=== PATIENT | male | born 1965 | race Caucasian/White ===

== ENCOUNTER 2018-06-13 19:48 | Observation (INO) | payer OTHER ==
--- NOTE | 2018-06-13 22:15 | PDGENHP ---
History and Physical - Chief Complaint Left chest pain and left leg tingling - History of Present Illness 53-year-old male with past medical history of gout and distant history of hyperlipidemia and alcohol abuse who was transferred from a free-standing ER where he presented with chest pain and left leg tingling. He says that he was skiing at [employer] today and while driving up developed left-sided chest pain that came and went intermittently throughout the day. He also said he was more fatigued today as well. After skiing he was in his condo with his and said that the chest pain spread to his left arm. They became concerned and decided to drive home rather than stay the night at the condo in [place]. They decided to stop at the freestanding ER in [facility] in [place] where he was evaluated. A CTA of his chest was obtained which showed no acute pulmonary embolus. A CT and CTA of his head and neck was obtained which showed no acute infarct. Tele neurology was consulted as well who did not think he was having an acute infarct. His chest pain was left-sided sharp came on for a few seconds and then would resolve. He had these episodes throughout the day. Later in the day though it did spread to his left arm with some tingling. His left leg was also tingling later in the day any thinks he may have had some mild weakness transiently in his left leg. Symptoms are currently resolved he said he feels good. He had no nausea vomiting double vision cough shortness of breath or other symptoms History Information - Allergies/Home Medication List Allergies/Adverse Reactions: No Known Allergies Allergy (Verified 05/02/13 11:05) Home Medications: Allopurinol 100 MG (*) 200 06/13/18 [Last Taken Unknown] I have personally reviewed and updated: family history, medical history, social history, surgical history (gout, hld, etoh abuse, ) - Family History Positive for: non-pertinent - Social History Smoking Status: Former smoker Tobacco Use: Cigarettes Alcohol Use: None Review of Systems Review of Systems: ROS: 10pt was reviewed & negative except for what was stated in HPI & below Physical Exam Physical Exam: Temp Pulse Resp BP Pulse Ox 36.7 C 77 16 132/87 H 93 06/13/18 21:27 06/13/18 21:27 06/13/18 21:27 06/13/18 21:27 06/13/18 21:27 Constitutional: no apparent distress, appears nourished, not in pain Eyes: PERRL, anicteric sclera, EOMI Ears, Nose, Mouth, Throat: moist mucous membranes, hearing normal, ears appear normal, no oral mucosal ulcers Cardiovascular: regular rate and rhythym, no murmur, rub, or gallop, No edema Respiratory: no respiratory distress, no rales or rhonchi, clear to auscultation Gastrointestinal: normoactive bowel sounds, soft, non-tender abdomen, no palpable masses Genitourinary: no bladder fullness, no bladder tenderness Skin: warm, normal color, no rashes or abrasions, no fluctuance, no induration, No mottled Musculoskeletal: full muscle strength, no muscle tenderness, normal joint ROM, no joint effusions Psychiatric: interacting appropriately, not anxious, not encephalopathic, thought process linear Lymph, Heme, Immunologic: no cervical LAD, no supraclavicular LAD Assessment & Plan Assessment: Chest pain- heart score is 3 for moderately suspicious history, history of hyperlipidemia, and his age of 53 years. Currently is chest pain-free. EKG is normal sinus rhythm. Initial troponin was negative. CTA was negative for any PE. -monitor on telemetry -echo -cycle tropes -exercise stress test in the morning -cards consult Left leg tingling- CTA head and neck negative, symptoms resolved, neurology consulted at osh ER who fell patient not having an acute stroke. They apparently called Dr. Carlisle who said he would see the patient in the morning. -echo with bubble -lipid panel hemoglobin A1c -MRI brain -Neurology to see Gout- continue allopurinol Prophylaxis- SCDs and Lovenox Fluids-saline Electrolytes- within normal limits Nutrition-cardiac diet Cor-full code Dispo- observation for chest pain and left leg tingling
[2018-06-13] MEDS ORDERED: ACETAMINOPHEN 325 MG TAB PO PRN (22:32)
[2018-06-13] MEDS ORDERED: ONDANSETRON DISINTEGRATING 4 MG TAB PO PRN (22:32)
[2018-06-13] MEDS ORDERED: ONDANSETRON 4 MG/2 ML VIAL IVP PRN (22:32)
[2018-06-13] MEDS ORDERED: NS 1,000 ML IV SCH (22:45)
[2018-06-14 05:13] LABS: PLATELET COUNT 272 10^3/uL (150-400)
[2018-06-14] MEDS ORDERED: GADOBUTROL 10 ML VIAL IVP ONE (10:39)
[2018-06-14 11:15] VITALS: BP 116/81
--- NOTE | 2018-06-14 11:43 | NEUROPROG ---
Assessment: [id number] - Neurology Consult: - CC: Dr. Torres consulted neurology for left leg tingling - HPI: 06/14/18: Pt noted on 06/13/18 that he had chest pain intermittently throughout the day. He was seen at a free-standing ER on 06/13/18 for these symptoms. It was reported a chest CTA showed no acute PE and a head/neck CTA was unremarkable. Head CT reported to show no bleed. Tele-neurology was also consulted and they did not feel the patient was having an acute infarct. He also noted tingling in his left arm/leg and possible subtle weakness in his left leg on 06/13/18. Symptoms had resolved when he was admitted to [facility] for evaluation of his symptoms. I initially saw the patient on 06/14/18. Neurologic exam was normal. Brain MRI did not show any acute stroke on my review but pending radiology read. - PMHx: gout, alcohol abuse, HLD - SHx: former tobacco user FHx: NC - ROS: Pt denied acute fever, total vision loss, active severe chest pain, respiratory failure, total body severe rash, total bowel/bladder incontinence, psychosis, active seizures, or active bleeding - O: VS reviewed General: Alert Eyes: Fundoscopic exam not able to visualize optic disks CV: Heart RRR, no murmur, no carotid bruit Lungs: Clear to auscultation bilaterally, no rhonchi or rales Neuro: - Mental: . Oriented x person/place/date . concentration appears normal . speech fluency/comprehension normal . memory appears normal . fund of knowledge appear intact - Cranial Nerves: . II: PERRL, VFFTC . III/IV/: EOMI, no nystagmus, normal smooth pursuits, no Ptosis . V: facial sensation intact to LT . VII: face symmetric to eye closure and smile . VIII: hearing intact to conversation . IX/X: uvula raises symmetrically . XI: SCM 5/5 B/L strength . XII: tongue protrudes midline w/nl strength - Motor: . Tone: normal tone in all 4 extremity . Strength: no pronator drift, strength 5/5 throughout (B/L delt, bic, tri, hand breast splitter, hf/he, df/pf) - Reflexes: B/L bic/BR/patella 2/4 - Sensory: all 4 extremity intact to light touch - Coord: [id number] wnl, CHRISTOPHER wnl, [id number] wnl - Gait: deferred - Labs: 06/14/18- CBC wnl, CMP Phos 4.6H, LDL 109 - Rads: 06/13/18- Head CT: reported to not show any bleeding 06/13/18- Head/neck CTA: reported to show no vessel occlusion 06/14/18- Brain MRI wo: no stroke seen - Assessment: 1. Left arm/leg tingling in setting of chest pain on 06/13/18: Likely tingling is from chest pain. However, TIA is possible so recommend full TIA evaluation. - Plan: - Begin aspirin 81 mg qd for stroke prevention - 24 hour telemetry to ensure no afib - TTE - Carotid U/S to exclude carotid stenosis - Blood pressure < 140/90 - H1AC < 7.0 - LDL < 70 (109), recommend beginning low dose statin - Agree with cardiology consult to evaluate chest pain Objective: Vital Signs Temp Pulse Resp BP Pulse Ox 36.6 C 88 15 116/81 H 97 06/14/18 11:14 06/14/18 11:14 06/14/18 11:14 06/14/18 11:14 06/14/18 11:14 Laboratory Results 06/14/18 04:30 06/14/18 04:30 06/13/18 06/14/18 06/15/18 05:59 05:59 05:59 Intake Total 150 Balance 150 Allergies/Adverse Reactions: No Known Allergies Allergy (Verified 05/02/13 11:05)
--- NOTE | 2018-06-14 12:46 | ECHO ---
[email or web address] [address] [address] Main: [phone] Fax: Transthoracic Echocardiogram Name: JAKE BLANCA MR#: [id number] Study Date: 06/14/2018 Study Time: 09:50 AM Date of : 1965 Age: 53 year(s) Height: 172.7 cm (68 in.) Weight: 77.57 kg (171 lb.) BSA: 1.91 m2 Gender: Male Examination: Echo Indication: Chest pain/left leg weakness Image Quality: Excellent Contrast: Requested by: Benjie Mendiola BP: 103 mmHg/62 mmHg Heart Rate: Rhythm: Indication: Chest pain/left leg weakness Procedure Staff Molded Parts Inspector: Leanne Reed [facility] Reading Physician: Olga Weiss MD Requesting Provider: Conclusions: Normal size left ventricle. No LV hypertrophy. Normal global systolic LV function. The ejection fraction is estimated to be 65-70 %. No regional wall motion abnormality. Normal diastolic LV function. Normal size right ventricle. Normal RV function. Trivial to mild tricuspid valve regurgitation. The pulmonary artery pressure is normal. No pericardial effusion. There is no previous echocardiogram for comparison. Measurements: Chambers Valvular Assessment AV/MV Valvular Assessment TV/PV Normal Normal Normal Name Value Range Name Value Range Name Value Range Ao Jazmine (MM): 3.4 cm (2.2 cm-3.7 AV Vmax: 1.27 m/s (1 m/s-1.7 TR Vmax: 2.08 mm/s ( - ) cm) m/s) TR PGmax: 17 mmHg ( - ) IVSd (2D): 0.9 cm (0.6 cm-1.1 AV meanP mmHg ( - ) syst. PAP: 22 mmHg ( - ) cm) MV E Vmax: 0.61 m/s ( - ) LVDd (2D): 4.7 cm (4.2 cm-5.9 MV A Vmax: 0.70 m/s ( - ) cm) MV E/A: 0.87 ( - ) LVDs (2D): 2.6 cm (2.1 cm-4 cm) LVPWd (2D): 0.9 cm (0.6 cm-1 cm) LVEF (BP): 75 % (>=55 %) EF Range: 65-70 % Patient: JAKE BLANCA Study Date: 06/14/2018 Page 1 of 2 09:50 AM Continued Measurements: Chambers Valvular Assessment AV/MV Valvular Assessment TV/PV Name Value Name Value Name Value LADs: 3.6 cm MV E' Septal: 0.06 m/s CVP (est.): 5 mmHg LADs Lon.4 cm MV E/E' Septal: 9.80 LA Area: 12.2 cm2 MV E/E' Lateral: 8.10 LA Volume: 29 ml LA Volume Index: 15.2 ml/m2 Additional Vessels Name Value Ao Ascendin.0 cm Findings: Left Ventricle: Normal size left ventricle. No LV hypertrophy. Normal global systolic LV function. The ejection fraction is estimated to be 65-70 %. No regional wall motion abnormality. Normal diastolic LV function. Right Ventricle: Normal size right ventricle. Normal RV function. Left Atrium: The left atrium is normal in size. Right Atrium: The right atrium is normal in size. Mitral Valve: The mitral valve is normal in appearance and function. Aortic Valve: The aortic valve is normal in appearance and function. The aortic valve is tri-leaflet. There is no aortic valve regurgitation. Tricuspid Valve: The tricuspid valve is normal in appearance and function. Trivial to mild tricuspid valve regurgitation. The pulmonary artery pressure is normal. Pulmonic Valve: The pulmonic valve is normal in appearance and function. Trivial pulmonic valve regurgitation. Aorta: The aorta is normal. Pericardium: No pericardial effusion. (No Signature Object) Patient: JAKE BLANCA Study Date: 06/14/2018 Page 2 of 2 09:50 AM [id number]
--- NOTE | 2018-06-14 12:47 | CPIP ---
[f rep st] INVASIVE CARDIAC PROCEDURE DATE OF PROCEDURE: 06/14/2018 PROCEDURE: Exercise stress test INDICATIONS: Chest pain. COMPLICATIONS: None. DESCRIPTION OF PROCEDURE: Informed consent was obtained. Patient was attached to the cardiac monito r. He underwent standard Chris protocol testing, continuous EKG monitoring, frequent blood pressure monitoring, and spot saturation monitoring. FINDINGS: The resting EKG shows normal sinus rhythm. The patient walked for 10 minutes and 43 secon ds achieving a maximum METS of 11.2. Resting heart rate was 85 beats per minute. Peak heart rate 174 beats per minute, which represents 1 03% of age predicted maximum heart rate. Resting blood pressure 102/60, peak blood pressure 174/60. The patient was complaining of 4/10 left shoulder and left arm discomfort prior to testing. This did not change during testing. In the immediate recovery, he had slight worsening of discomfort, which then went back to 4/10. He was given a single sublingual nitroglycerin without significant change in his symptoms. Oxygen saturation remained above 90% throughout testing. There were no ST changes or arrhythmias during stress or recovery. CONCLUSIONS: Excellent exercise tolerance with normal hemodynamic response to exercise. No EKG evid ence of ischemia. No arrhythmias. The patient had chest pain prior to exercise that did not change with exercise and did not significantly change with the administration nitroglycerin in recovery. Co ntinue to evaluate causes of atypical chest pain. /[id number]/MODL
[2018-06-14] MEDS ORDERED: ASPIRIN 325 MG TAB PO SCH (13:15)
[2018-06-14] MEDS ORDERED: NITROGLYCERIN 0.4 MG BTL SL PRN (14:48)
--- NOTE | 2018-06-14 15:24 | GCON ---
[f rep st] CONSULTATION CARDIOLOGY CONSULT DATE OF CONSULTATION: 06/14/2018 REFERRING PHYSICIAN: Benjie Torres MD CHIEF COMPLAINT: Chest pain. HISTORY OF PRESENT ILLNESS: We were asked by Dr. Benavidez, to visit with the patient. The patient is a 53-year-old male with a history of gout and past dyslipidemia, but no known coronary disease. He is admitted through an urgent care for further evaluation of chest pain and TIA like symptoms. He was in his usual state of good health yesterday morning. He was packing the car to go skiing and he started to notice left axillary discomfort. This waxed and waned on the drive. He skied, but did not feel well in general, somewhat fatigued. He felt a little nauseated. He then started having so me tingling in his left arm and left leg and felt like it was difficult to take a deep breath. They started to drive home and ultimately stopped at the [facility] in [place], [place]. I have reviewed these records. Troponin was negative. A CT of the brain was negative for acute proc ess. CT angiogram of the head and neck showed no vascular abnormalities, other than minimal plaque. He also had a CT of the chest, which was negative for PE. Because of his chest pain and neurologica l symptoms, he was transferred to [facility]. Of note, he also had a telemedicine neur ology consult at the Urgent Care and it was not felt that he was having an acute stroke. Here, he has had 2 additional negative troponins with ongoing left shoulder and left elbow discomfort . This symptom is not made worse with exercise. He has not had recent trauma. REVIEW OF SYSTEMS: A full 10-point review of systems was performed and is negative, except that whic h is outlined in history of Present Illness. Specifically, he has not had dysarthria or visual galeana e. He does note a little bit of intermittent muscle twitching in his right temporal area. ALLERGIES: No known drug allergies. PAST MEDICAL HISTORY: 1. Gout. 2. Dyslipidemia is listed, but he takes no medications. SOCIAL HISTORY: The patient has a past smoking history. He denies alcohol use. FAMILY HISTORY: Notable for brother with hypercholesterolemia and hypertension. PHYSICAL EXAM: VITAL SIGNS: Blood pressure 116/81, heart rate 88, oxygen saturation 97% on room air , respiratory rate is 15. He is afebrile. GENERAL: A well-appearing middle-aged male in no acute d istress. HEENT: Sclerae clear and free of jaundice. Mucous membranes are moist. Normocephalic, at raumatic. CARDIOVASCULAR: JVP less than 10. Carotids equal and 2+ without bruit. Regular rate and rhythm without murmur, rub, or gallop. LUNGS: Clear to auscultation bilaterally, without wheezes, rhonchi, or rales. EXTREMITIES: Warm and well perfused without cyanosis, clubbing, or edema. NEURO : Alert and oriented x3 without gross focal neurological deficits. Appropriate mood and affect. LABORATORY/IMAGING: CBC normal. Comprehensive metabolic panel is normal. Hemoglobin A1c is pending . Phosphorus is slightly high at 4.6. Troponin negative x2. LDL cholesterol 109. EKG during his stress test shows normal sinus rhythm without ischemic changes. Brain MRI here shows no evidence of infarction. Minimal chronic sinus related change. Echocardiogram reviewed by me shows normal LV size, systolic function. No regional wall motion abnor mality. No significant valvular disease. No pericardial effusion. Exercise stress test supervised by me: Patient walked for 10 minutes and 43 seconds. He did have 4/ 10 left shoulder and left elbow pain prior to stress testing that did not change with exercise. He w as given nitroglycerin in recovery with minimal change in symptoms. There were no ischemic EKG galeana es. He had a normal hemodynamic response to exercise and no arrhythmia. ASSESSMENT AND PLAN: 53-year-old male admitted with ongoing left shoulder and arm discomfort, as wel l as possible transient ischemic attack like symptoms manifest by tingling in the left arm and left l eg. He has had extensive evaluation as detailed above. 1. Chest pain: He has had reassuringly negative troponins, normal echo, and subjectively normal str ess test, although he had left shoulder pain before, during, and after stress. I do not think that h is pain represents a cardiac etiology; however, if high clinical suspicion remains, could consider re peat stress testing with nuclear stress test versus CT coronary angiography. I think evaluating for musculoskeletal causes of chest pain is also reasonable. I would have him on aspirin for now. Again , I think my suspicion for obstructive coronary disease is low and there is no evidence of pulmonary embolism, aortic pathology, or pericarditis. 2. Possible transient ischemic attack: He has been seen by Dr. Carlisle. He has had reassuring neuro i maging as well. 3. History of dyslipidemia: Lipids are good here. Could consider heart scan for further risk strat ification as an outpatient. Thank you for allowing us to participate in the patient's care. Will follow with you. /[id number]/MODL
--- NOTE | 2018-06-14 15:27 | NEUROPROG ---
Assessment: [id number] - Neurology Consult: - CC: Dr. Torres consulted neurology for left leg tingling - HPI: 06/14/18: Pt noted on 06/13/18 that he had chest pain intermittently throughout the day. He was seen at a free-standing ER on 06/13/18 for these symptoms. It was reported a chest CTA showed no acute PE and a head/neck CTA was unremarkable. Head CT reported to show no bleed. Tele-neurology was also consulted and they did not feel the patient was having an acute infarct. He also noted tingling in his left arm/leg and possible subtle weakness in his left leg on 06/13/18. Symptoms had resolved when he was admitted to [facility] for evaluation of his symptoms. I initially saw the patient on 06/14/18. Neurologic exam was normal. Brain MRI did not show any acute stroke and carotid U/S did not show any significant stenosis. TTE and telemetry unconerning for any stroke source. I recommended beginning a statin and aspirin to cover the chance his symptoms were from a TIA. - PMHx: gout, alcohol abuse, HLD - SHx: former tobacco user FHx: NC - ROS: Pt denied acute fever, total vision loss, active severe chest pain, respiratory failure, total body severe rash, total bowel/bladder incontinence, psychosis, active seizures, or active bleeding - O: VS reviewed General: Alert Eyes: Fundoscopic exam not able to visualize optic disks CV: Heart RRR, no murmur, no carotid bruit Lungs: Clear to auscultation bilaterally, no rhonchi or rales Neuro: - Mental: . Oriented x person/place/date . concentration appears normal . speech fluency/comprehension normal . memory appears normal . fund of knowledge appear intact - Cranial Nerves: . II: PERRL, VFFTC . III/IV/: EOMI, no nystagmus, normal smooth pursuits, no Ptosis . V: facial sensation intact to LT . VII: face symmetric to eye closure and smile . VIII: hearing intact to conversation . IX/X: uvula raises symmetrically . XI: SCM 5/5 B/L strength . XII: tongue protrudes midline w/nl strength - Motor: . Tone: normal tone in all 4 extremity . Strength: no pronator drift, strength 5/5 throughout (B/L delt, bic, tri, hand strike out machine operator, hf/he, df/pf) - Reflexes: B/L bic/BR/patella 06/08 - Sensory: all 4 extremity intact to light touch - Coord: [id number] wnl, CHRISTOPHER wnl, [id number] wnl - Gait: deferred - Labs: 06/14/18- CBC wnl, CMP Phos 4.6H, LDL 109 - Rads: 06/13/18- Head CT: reported to not show any bleeding 06/13/18- Head/neck CTA: reported to show no vessel occlusion 06/14/18- Brain MRI wo: no stroke seen - Assessment: 1. Left arm/leg tingling in setting of chest pain on 06/13/18: Likely tingling is from chest pain. However, TIA is possible. - Plan: - Begin aspirin 81 mg qd for stroke prevention - Work with PCM to ensure Blood pressure < 140/90, H1AC < 7.0, LDL < 70 (109) - recommend beginning low dose statin Objective: Vital Signs Temp Pulse Resp BP Pulse Ox 36.6 C 88 15 116/81 H 97 06/14/18 11:14 06/14/18 11:14 06/14/18 11:14 06/14/18 11:14 06/14/18 11:14 Laboratory Results 06/14/18 04:30 06/14/18 04:30 06/13/18 06/14/18 06/15/18 05:59 05:59 05:59 Intake Total 150 Balance 150 Allergies/Adverse Reactions: No Known Allergies Allergy (Verified 05/02/13 11:05)
--- NOTE | 2018-06-14 16:59 | GDS ---
[f rep st] DISCHARGE SUMMARY DISCHARGE DIAGNOSES: 1. Possible transient ischemic attack. 2. Atypical chest pain. HISTORY: The patient is a 53-year-old male who was skiing in [place] when he developed chest pain radia ting down his left arm. He also had some left hand tingling and transient left leg weakness. He was admitted to observation. His initially seen at [facility] Emergency Room and had a CT angiogram that w as negative for PE. EKG and troponin were negative. We did an extensive exam workup, including an e chocardiogram was negative and an exercise stress test that was negative. Per Dr. Weiss, suspect atyp ical chest pain. He was also seen by Dr. Aleksey Carlisle of Neurology. Brain MRI was negative. Carotid ultrasound was n egative. There was a suspicion for possible TIA. He will be discharged on a baby aspirin and a stat in drug. LDL was 109. DISCHARGE MEDICATIONS: Please see computerized record for full detailed list. New medication: 1. Aspirin 81 mg p.o. daily. 2. Lipitor 20 mg p.o. daily. DISCHARGE INSTRUCTIONS: Follow up with primary care. Patient was seen and examined by me on the day of discharge. /[id number]/MODL
[2018-06-15] MEDS ORDERED: ALLOPURINOL 100 MG TAB PO SCH (09:00)
== END 2018-06-14 15:40 | disposition home or self-care (01) ==
LOC: F3N 21:22
PROVIDERS: ADMIT Internal Medicine; ATTEND Internal Medicine
DX: R07.89 Other chest pain (principal); M10.9 Gout, unspecified; F10.11 Alcohol abuse, in remission; Z87.891 Personal history of nicotine dependence
CPT/HCPCS: 70553; 93017; 93306; 93880; G0378; A9585